=== PATIENT | male | born 1990 | race Caucasian/White ===

== ENCOUNTER 2017-06-28 12:35 | Emergency (ER) | payer SELFPAY ==
[2017-06-28 12:53] VITALS: BP 147/93; PULSE 86; RESP 16; TEMP 98; O2SAT 98
--- NOTE | 2017-06-28 13:21 | ED PDOC ---
HPI: Dental Pain/Injury Time Seen by Provider: 06/28/17 13:00 Chief Complaint (Nursing): Dental Pain Chief Complaint (Provider): Dental Pain History Per: Patient History/Exam Limitations: no limitations Onset/Duration Of Symptoms: Days (x 3) Current Symptoms Are (Timing): Still Present Additional Complaint(s): Carmen is a 26 y/o male who presents to the ED complaining of left-sided facial swelling and dental pain since Wednesday. Patient reports he has not seen a dentist for symptoms. Took Tylenol once on Wednesday with minimal relief. PMD: None Past Medical History Reviewed: Historical Data, Nursing Documentation, Vital Signs Vital Signs: Last Vital Signs Temp 98 F 06/28/17 12:51 Pulse 86 06/28/17 12:51 Resp 16 06/28/17 12:51 BP 147/93 H 06/28/17 12:51 Pulse Ox 98 06/28/17 12:51 - Medical History PMH: No Chronic Diseases - Family History Family History: States: Unknown Family Hx - Home Medications Home Medications: Ambulatory Orders Medication Instructions Recorded Hydrocortisone 2.5% (Rectal) 30 applic ND BID #0 tube 02/17/16 [Anusol-HC] Ibuprofen [Motrin Tab] 800 mg PO Q8 PRN #20 tab 02/17/16 Lidocaine 5% 35 gm EXT TID PRN #1 tube 02/17/16 Amoxicillin 875 mg PO BID #20 tab 06/28/17 Ibuprofen [Motrin Tab] 800 mg PO Q6H PRN #20 tab 06/28/17 - Allergies Allergies/Adverse Reactions: Allergies Allergy/AdvReac Type Severity Reaction Status Date / Time No Known Allergies Allergy Verified 06/28/17 12:51 Review of Systems ROS Statement: Except As Marked, All Systems Reviewed And Found Negative ENT: Positive for: Other (Left facial swelling and dental pain) Physical Exam - Reviewed Nursing Documentation Reviewed: Yes Vital Signs Reviewed: Yes - Physical Exam Appears: Positive for: Well, Non-toxic, No Acute Distress Head Exam: Positive for: ATRAUMATIC, NORMAL INSPECTION, NORMOCEPHALIC Skin: Positive for: Normal Color, Warm, Dry Eye Exam: Positive for: Normal appearance ENT: Positive for: Other (Mild swelling of left cheek, no abscess formation) Respiratory: Negative for: Respiratory Distress Neurologic/Psych: Positive for: Alert, Oriented - ECG O2 Sat by Pulse Oximetry: 98 (RA) Pulse Ox Interpretation: Normal Medical Decision Making Medical Decision Making: Clinical Impression: Pain, dental Upon provider evaluation patient is medically stable, and requires no further treatment in the ED at this time. Instructed to follow up with dentist. Patient will be discharged home with Rx for Amoxicillin and Motrin. Counseling was provided and all questions were answered regarding diagnosis and need for follow up. There is agreement to discharge plan. Return if symptoms persist or worsen. Scribe Attestation: Documented by Shyla Toure, acting as a scribe for Marysol Dozier PA-C Provider Scribe Attestation: All medical record entries made by the Scribe were at my direction and personally dictated by me. I have reviewed the chart and agree that the record accurately reflects my personal performance of the history, physical exam, medical decision making, and the department course for this patient. I have also personally directed, reviewed, and agree with the discharge instructions and disposition. Disposition - Clinical Impression Clinical Impression: Pain, dental - Patient ED Disposition Is Patient to be Admitted: No Counseled Patient/Family Regarding: Diagnosis, Need For Followup, Rx Given - Disposition Disposition: Routine/Home Disposition Time: 13:11 Condition: STABLE Prescriptions: Amoxicillin 875 mg PO BID #20 tab Ibuprofen [Motrin Tab] 800 mg PO Q6H PRN #20 tab PRN Reason: Pain Instructions: Toothache (ED) Forms: [employer] ([place])
== END 2017-06-28 13:31 | disposition home or self-care (01) ==
LOC: H.ER 12:35
DX: K08.89 Other specified disorders of teeth and supporting structures (principal)

== ENCOUNTER 2017-11-18 10:23 | Emergency (ER) | payer SELFPAY ==
[2017-11-18 10:42] VITALS: BP 117/74; PULSE 87; RESP 18; TEMP 97.8; O2SAT 97
[2017-11-18] MEDS ORDERED: Sodium Chloride 0.9% 1,000 ML IV STA (11:34)
--- NOTE | 2017-11-18 11:37 | ED PDOC ---
HPI: Abdomen Time Seen by Provider: 11/18/17 10:57 Chief Complaint (Nursing): Back Pain Chief Complaint (Provider): Abd pain History Per: Patient History/Exam Limitations: no limitations Onset/Duration Of Symptoms: Days (3) Additional Complaint(s): Pt. with R upper side abd pain. 3 days. Nausea, vomit with x2 with blood tinge. No diarrhea, new food, chest pain, dizziness, headaches, weakness, dyspnea. No fever. Had same in the past and was dx with elevated liver enzymes. Past Medical History Reviewed: Nursing Documentation, Vital Signs Vital Signs: Last Vital Signs Temp 97.8 F 11/18/17 10:37 Pulse 87 11/18/17 10:37 Resp 18 11/18/17 10:37 BP 117/74 11/18/17 10:37 Pulse Ox 97 11/18/17 13:23 - Medical History Other PMH: elevated liver enzymes - Surgical History Surgical History: No Surg Hx - Family History Family History: States: Unknown Family Hx - Home Medications Home Medications: Ambulatory Orders Medication Instructions Recorded Ciprofloxacin HCl [Cipro] 500 mg PO BID 7 Days tab 11/18/17 Ibuprofen [Motrin] 600 mg PO TID 7 Days tab 11/18/17 Metronidazole [Flagyl] 500 mg PO TID 7 Days tablet 11/18/17 - Allergies Allergies/Adverse Reactions: Allergies Allergy/AdvReac Type Severity Reaction Status Date / Time No Known Allergies Allergy Verified 06/28/17 12:51 Review of Systems ROS Statement: Except As Marked, All Systems Reviewed And Found Negative Gastrointestinal: Positive for: Nausea, Vomiting, Abdominal Pain, Hematemesis Physical Exam - Reviewed Nursing Documentation Reviewed: Yes Vital Signs Reviewed: Yes - Physical Exam Appears: Positive for: Non-toxic, No Acute Distress Head Exam: Positive for: ATRAUMATIC, NORMAL INSPECTION, NORMOCEPHALIC Skin: Positive for: Normal Color, Warm, DRY Eye Exam: Positive for: EOMI, Normal appearance, PERRL ENT: Positive for: Normal ENT Inspection Neck: Positive for: Normal, Painless ROM Cardiovascular/Chest: Positive for: Regular Rate, Rhythm Respiratory: Positive for: CNT, Normal Breath Sounds Gastrointestinal/Abdominal: Positive for: Bowel Sounds, Soft, Tenderness (R upper lateral abd pain mild; no tenderness lower abd pain; no periumbilical tenderness) Back: Positive for: Normal Inspection. Negative for: L CVA Tenderness, R CVA Tenderness Extremity: Positive for: Normal ROM. Negative for: Tenderness, Pedal Edema Neurologic/Psych: Positive for: Alert, Oriented - Laboratory Results Result Diagrams: 11/18/17 11:45 11/18/17 11:45 Interpretation Of Abn Labs: mild elevated ast/alt; lipase 450 - ECG O2 Sat by Pulse Oximetry: 97 Pulse Ox Interpretation: Normal - CT Scan/US ct Other Rad Studies (CT/US): Read By Radiologist Other Rad Interpretation: diverticulitis - Progress ED Course And Treament: 1843: Stable. AAOx3. Pain free. Fu with pcp. Tolerated PO. Disposition - Clinical Impression Clinical Impression: Colitis - Patient ED Disposition Is Patient to be Admitted: No - Disposition Referrals: [facility] [Outside] - 11/19/17 Luis Jacome MD [Medical Doctor] - 11/19/17 Disposition: Routine/Home Disposition Time: 18:45 Condition: STABLE Additional Instructions: Return if not better in 3 days. Prescriptions: Ciprofloxacin HCl [Cipro] 500 mg PO BID 7 Days tab Ibuprofen [Motrin] 600 mg PO TID 7 Days tab Metronidazole [Flagyl] 500 mg PO TID 7 Days tablet Forms: [employer] ([place]), [facility] ED School/Work Excuse
[2017-11-18 12:03] LABS: BASO % 0.4 % (0.0-2.0); EOS # 0.1 K/uL (0.0-0.7); EOS % 1.4 % (0.0-4.0); HEMOGLOBIN 15.3 g/dL (12.0-18.0); LYMPH # 1.7 K/uL (1.0-4.3); LYMPH % 20.7 % (20.0-40.0); MEAN CELL VOLUME 91.6 fl (80.0-94.0); MEAN CORPUSCULAR HEMOGLOBIN 31.1 pg (27.0-31.0); MEAN CORPUSCULAR HGB CONC 33.9 g/dL (33.0-37.0); MEAN PLATELET VOLUME 8.2 fl (7.2-11.7); MONO # 0.6 K/uL (0.0-0.8); MONO % 7.4 % (0.0-10.0); NEUT # 5.6 K/uL (1.8-7.0); NEUT % 70.1 % (50.0-75.0); NRBC % 0.1 % (0.0-0.0); RBC 4.92 Mil/uL (4.40-5.90); RED CELL DISTRIBUTION WIDTH 12.4 % (11.5-14.5)
[2017-11-18 12:14] LABS: PARTIAL THROMBOPLASTIN TIME 30.3 Seconds (25.6-37.1); PROTHROMBIN TIME 11.3 Seconds (9.8-13.1)
[2017-11-18 12:22] LABS: ALB/GLOB RATIO 1.4 (1.0-2.1); ALBUMIN 4.4 g/dL (3.5-5.0); ALT/SGPT 155 U/L (21-72); AST/SGOT 75 U/L (17-59); BLOOD UREA NITROGEN 12 mg/dl (9-20); CALCIUM 9.7 mg/dL (8.4-10.2); GFR AFRICAN-AMERICAN > 60; GFR NON-AFRICAN AMERICAN > 60; LIPASE 450 U/L (23-300)
--- NOTE | 2017-11-18 12:31 | US ---
HISTORY: pain R side COMPARISON: None. TECHNIQUE: Sonographic evaluation of the abdomen. FINDINGS: LIVER: Measures 15.0 cm. Normal echogenicity of the liver parenchyma. No mass. No intrahepatic bile duct dilatation. GALLBLADDER: Multiple small gallbladder polyps versus tumefactive sludge, the largest measures up to 5 mm. COMMON BILE DUCT: Measures 4 mm. No stones. No dilatation. PANCREAS: Unremarkable as visualized. No mass. No ductal dilatation. RIGHT KIDNEY: Measures 11.5 x 5.3 x 4.8cm. Normal echogenicity. No calculus, mass, or hydronephrosis. LEFT KIDNEY: Measures 12.0 x 5.0 x 5.2cm. Normal echogenicity. No calculus, mass, or hydronephrosis. SPLEEN: Normal in size and contour. No mass. AORTA: No aneurysmal dilatation. IVC: Unremarkable. OTHER FINDINGS: None. IMPRESSION: Small gallbladder polyps versus tumefactive sludge, measuring up to 5 mm.
[2017-11-18] MEDS ORDERED: Iohexol 240 (50 ml) PO ONE (13:23)
[2017-11-18] MEDS ORDERED: Iohexol 240 (50 ml) ONE (15:28)
[2017-11-18] MEDS ORDERED: Iohexol 300 100 ML IJ ONE (15:35)
[2017-11-18] MEDS ORDERED: Sodium Chloride 0.9% 100 ML ONE (15:35)
--- NOTE | 2017-11-18 18:12 | CT ---
PROCEDURE: CT Abdomen and Pelvis with oral and IV contrast. HISTORY: abd pain COMPARISON: Abdominal ultrasound performed 11/18/17. TECHNIQUE: Contiguous axial images of the abdomen and pelvis. Oral and IV contrast was administered. Coronal and Sagittal reformats generated and reviewed. Contrast dose: 90 mL Omnipaque 300 Radiation dose: Total exam DLP = 380.36 mGy-cm. This CT exam was performed using one or more of the following dose reduction techniques: Automated exposure control, adjustment of the mA and/or kV according to patient size, and/or use of iterative reconstruction technique. FINDINGS: LOWER THORAX: No visible consolidation, pleural effusion, or pneumothorax. LIVER: Unremarkable. GALLBLADDER AND BILE DUCTS: Unremarkable. PANCREAS: Unremarkable. SPLEEN: Unremarkable. ADRENALS: Unremarkable. KIDNEYS AND URETERS: The kidneys enhance symmetrically. No hydronephrosis or obstructing renal calculus. BLADDER: Thick-walled under distended urinary bladder. REPRODUCTIVE: Prominence of the seminal glands of uncertain significance. Correlate clinically. APPENDIX: The appendix appears within normal limits of caliber. No secondary signs of acute appendicitis. BOWEL: The stomach is nondistended. The bowel loops appear within normal limits of caliber without evidence of intestinal obstruction. Diverticulosis of the rectosigmoid colon with mild wall thickening ; correlate clinically for possibility of acute diverticulitis. PERITONEUM: No significant free fluid. No definite free air. LYMPH NODES: No bulky lymphadenopathy identified. VASCULATURE: No aortic aneurysm. BONES: No acute osseous abnormality is detected. OTHER FINDINGS: None. IMPRESSION: Diverticulosis of the rectosigmoid colon with mild wall thickening ; correlate clinically for possibility of acute diverticulitis. Thick-walled under distended urinary bladder. Recommend correlation with urinalysis. Prominence of the seminal glands of uncertain significance. Correlate clinically. Additional findings as above.
== END 2017-11-18 19:10 | disposition home or self-care (01) ==
LOC: H.ER 10:23 → SUPCPDRO 10:23 → H.ER 19:10
DX: K52.9 Noninfective gastroenteritis and colitis, unspecified (principal); R74.8 Abnormal levels of other serum enzymes
CPT/HCPCS: 74177; 76700; 80053; 83690; 85025; 85610; 85730; 96374; 96375; 96376; 99284; G0480; J1885; J2405; J7040; Q9966; Q9967

== ENCOUNTER 2017-11-20 23:44 | Observation (INO) | payer SELFPAY ==
[2017-11-21] MEDS ORDERED: Sodium Chloride 0.9% 1,000 ML IV STA ×2 (00:29→01:50)
--- NOTE | 2017-11-21 00:35 | ED PDOC ---
HPI: Abdomen Chief Complaint (Provider): Abdominal pain History Per: Patient History/Exam Limitations: no limitations Onset/Duration Of Symptoms: Days (3) Current Symptoms Are (Timing): Still Present Pain Scale Rating Of: 8 Location Of Pain/Discomfort: RUQ, Epigastric Quality Of Discomfort: Cramping Associated Symptoms: Nausea, Vomiting, Diarrhea Exacerbating Factors: None Alleviating Factors: None Last Bowel Movement: Today (diarrhea 1 hour ago) <Jonathan Steele - Last Filed: 11/21/17 06:31> <Peng Conrad - Last Filed: 11/21/17 07:31> Time Seen by Provider: 11/21/17 00:08 Chief Complaint (Nursing): Abdominal Pain Additional Complaint(s): 27 yo ,m, no significant PMhx presents to ED c/o epigastric and RUQ abd pain started 3 days ago, cramping, intermittent, 8/10 intensity, not radiated, associated with nausea, 7 non-bloddy vomiting, 8 non-bloddy diarrhea today and fatigue. He denies fever, dizziness, chest apin, SOB, dysuria, odd food ingestion. Patient evalauted in ED 11/18 for abd pain and vomiting. Patient discharged home with treatment ciprofloxacin and metronidazol for colitis. Patient did not pick med from pharmacy. On evaluation patient uncomfortable in pain and with mild dehydration. PMD: Dr Nelson (Jonathan Steele) Supervising Attending Note <Jonathan Steele - Last Filed: 11/21/17 06:31> - Attestation: I have personally seen and examined this patient.: Yes I have fully participated in the care of the patient.: Yes I have reviewed all pertinent clinical information: Yes <Peng Conrad - Last Filed: 11/21/17 07:31> - Notes: Notes:: Patient profoundly dehydrated, having intractable nausea and vomiting, will not be able to tolerate PO ABx, also significant leukocytosis. Will place in obs for IVF and IV ABx. (Peng Conrad) Past Medical History Reviewed: Historical Data, Nursing Documentation, Vital Signs - Surgical History Surgical History: No Surg Hx - Family History Family History: States: Hypertension Other Family History: -Parents - Social History Alcohol: None Drugs: Denies <Jonathan Steele - Last Filed: 11/21/17 06:31> <Houston,Peng - Last Filed: 11/21/17 07:31> Vital Signs: Last Vital Signs Temp 98 F 11/20/17 23:51 Pulse 115 H 11/20/17 23:51 Resp 18 11/20/17 23:51 BP 128/80 11/20/17 23:51 Pulse Ox 100 11/21/17 06:31 - Home Medications Home Medications: Ambulatory Orders Medication Instructions Recorded Ciprofloxacin HCl [Cipro] 500 mg PO BID 7 Days tab 11/18/17 Ibuprofen [Motrin] 600 mg PO TID 7 Days tab 11/18/17 Metronidazole [Flagyl] 500 mg PO TID 7 Days tablet 11/18/17 - Allergies Allergies/Adverse Reactions: Allergies Allergy/AdvReac Type Severity Reaction Status Date / Time No Known Allergies Allergy Verified 06/28/17 12:51 Review of Systems ROS Statement: Except As Marked, All Systems Reviewed And Found Negative Gastrointestinal: Positive for: Nausea, Vomiting, Abdominal Pain, Diarrhea <Jonathan Steele - Last Filed: 11/21/17 06:31> Physical Exam - Physical Exam Appears: Positive for: No Acute Distress Head Exam: Positive for: ATRAUMATIC Skin: Positive for: Normal Color Eye Exam: Positive for: Normal appearance Neck: Positive for: Normal Cardiovascular/Chest: Positive for: Regular Rate, Rhythm, Tachycardia. Negative for: Murmur Respiratory: Positive for: Normal Breath Sounds. Negative for: Crackles, Rales , Rhonchi, Wheezing Gastrointestinal/Abdominal: Positive for: Bowel Sounds (hypoactive), Soft, Tenderness (epigastrium and RUQ). Negative for: Distended, Guarding, Rebound Back: Positive for: Normal Inspection Extremity: Positive for: Normal ROM. Negative for: Tenderness, Pedal Edema Neurologic/Psych: Positive for: Alert, Oriented. Negative for: Motor/Sensory Deficits <Jonathan Steele - Last Filed: 11/21/17 06:31> - Laboratory Results Result Diagrams: 11/21/17 01:09 11/21/17 01:09 - ECG O2 Sat by Pulse Oximetry: 100 <Jonathan Steele - Last Filed: 11/21/17 06:31> - Laboratory Results Result Diagrams: 11/21/17 01:09 11/21/17 01:09 <Peng Conrad - Last Filed: 11/21/17 07:31> Medical Decision Making <Jonathan Steele - Last Filed: 11/21/17 06:31> <Peng Conrad - Last Filed: 11/21/17 07:31> Medical Decision Makin:29 Impression Gastroenteritis. Colitis Differential Acute cholecystitis. Acute Pancreatitis Plan CBC, CMP ,Lipase IV FLuids 1 L NS, Zofran 4 mg, Pepcid 20 mg IV -reevaluate Prior visit 11/18/16 CT Abd: Diverticulosis of the rectosigmoid colon with mild wall thickening ; correlate clinically for possibility of acute diverticulitis. Thick-walled under distended urinary bladder. Recommend correlation with urinalysis. Prominence of the seminal glands of uncertain significance. Correlate clinically. US ABd: Small gallbladder polyps versus tumefactive sludge, measuring up to 5 mm. US Abd 11/21/17 1. The gallbladder wall measures 3 mm. There are multiple non-mobile gallbladder polyps measuring 5 mm, 6 mm and 4 mm unchanged from prior examination.There was no right upper quadrant tenderness during the sonographic examination. Correlation with patient 's pain medication status is recommended. Labs reviewed CBC: leukocytosis with lef shift deviation WBC: 25.1 total bili: 1.4 ALT:87. Lactic acid normal . -will give IV Abx Ciprofloxacin, Flagyl IV -further labs Blood cx, Urine cx -CT Abd/pelvis PO/IV CT Abd: Nonspecific colonic and distal small bowel wall thickening likely due to underdistention versus nonspecific enterocolitis. Patient will be admitted for Colitis and leukocytosis to c/w IV Abx (Jonathan Steele) Disposition - Disposition Disposition Time: 06:30 <Jonathan Steele - Last Filed: 11/21/17 06:31> <Peng Conrad - Last Filed: 11/21/17 07:31> - Clinical Impression Clinical Impression: Colitis - Disposition Condition: FAIR
[2017-11-21 01:19] LABS: BASO # 0.3 K/uL (0.0-0.2); BASO % 1.1 % (0.0-2.0); HEMOGLOBIN 14.3 g/dL (12.0-18.0); LYMPH # 0.3 K/uL (1.0-4.3); LYMPH % 1.1 % (20.0-40.0); MEAN CELL VOLUME 90.3 fl (80.0-94.0); MEAN CORPUSCULAR HEMOGLOBIN 30.8 pg (27.0-31.0); MEAN CORPUSCULAR HGB CONC 34.1 g/dL (33.0-37.0); MEAN PLATELET VOLUME 7.8 fl (7.2-11.7); MONO % 4.1 % (0.0-10.0); NEUT # 23.5 K/uL (1.8-7.0); NEUT % 93.7 % (50.0-75.0); NRBC % 0.5 % (0.0-0.0); PLATELET COUNT 245 K/uL (130-400); RBC 4.66 Mil/uL (4.40-5.90); RED CELL DISTRIBUTION WIDTH 12.4 % (11.5-14.5)
[2017-11-21 01:25] LABS: ALB/GLOB RATIO 1.4 (1.0-2.1); ALBUMIN 4.4 g/dL (3.5-5.0); ALT/SGPT 97 U/L (21-72); AST/SGOT 41 U/L (17-59); BLOOD UREA NITROGEN 12 mg/dl (9-20); CALCIUM 9.7 mg/dL (8.4-10.2); GFR AFRICAN-AMERICAN > 60; GFR NON-AFRICAN AMERICAN > 60; LIPASE 60 U/L (23-300)
[2017-11-21 01:27] LABS: WHITE BLOOD COUNT 25.1 K/uL (4.8-10.8)
[2017-11-21] MEDS ORDERED: metroNIDAZOLE 500mg/100ml NS 100 ML IVPB STA (01:49)
[2017-11-21] MEDS ORDERED: Ciprofloxacin 400mg/200ml D5W 400 MG/200 ML BAG IVPB STA (01:49)
--- NOTE | 2017-11-21 01:52 | US ---
EXAM: US Abdomen Limited, Right Upper Quadrant CLINICAL HISTORY: 27 years old, male; Pain; Other: Ruq; Additional info: Repeat us for worsening ruq pain TECHNIQUE: Real-time ultrasound of the right upper quadrant with image documentation. COMPARISON: US - ABDOMEN COMPLETE 2017-11-18 11:46 FINDINGS: Artifacts: Limited due to bowel gas shadowing. Limited due to shadowing from the ribs. Liver: The liver measures 16.1 cm. There is hepatic pedal flow in the portal vein. Gallbladder: The gallbladder wall measures 3 mm. There are multiple non-mobile gallbladder polyps measuring 5 mm, 6 mm and 4 mm unchanged from prior examination.There was no right upper quadrant tenderness during the sonographic examination. Correlation with patient's pain medication status is recommended. Common bile duct: Normal common bile duct measuring 4 mm. Pancreas: The pancreas is not well-seen. Right kidney: The right kidney measures 12.4 x 5.1 x 4.4 cm. No stones. No hydronephrosis. Aorta: Aorta measures 1.5 cm. No aneurysm. Inferior vena cava: IVC seen. IMPRESSION: 1. The gallbladder wall measures 3 mm. There are multiple non-mobile gallbladder polyps measuring 5 mm, 6 mm and 4 mm unchanged from prior examination.There was no right upper quadrant tenderness during the sonographic examination. Correlation with patient's pain medication status is recommended.
[2017-11-21] MEDS ORDERED: Iohexol 240 (50 ml) PO ONE (01:54)
[2017-11-21 03:13] LABS: LYMPHOCYTE 4 % (20-50); MONOCYTE 4 % (0-10); NEUTROPHIL 92 % (42-75); TOTAL CELLS COUNTED 100
[2017-11-21 03:14] LABS: PLATELET ESTIMATE NORMAL (NORMAL)
[2017-11-21] MEDS ORDERED: Iohexol 300 100 ML IJ ONE (04:20)
[2017-11-21] MEDS ORDERED: Sodium Chloride 0.9% 100 ML ONE (04:20)
[2017-11-21 05:52] LABS: SQUAMOUS EPITHIAL < 1 /hpf (0-5); URINE BILIRUBIN NEGATIVE (NEGATIVE); URINE BLOOD NEGATIVE (NEGATIVE); URINE CLARITY SLIGHTY-CLOUDY (Clear); URINE COLOR YELLOW (YELLOW); URINE GLUCOSE (UA) NEG (Normal); URINE LEUKOCYTE ESTERASE NEG Leu/uL (Negative); URINE PROTEIN 30 mg/dL (NEGATIVE); URINE UROBILINOGEN 0.2-1.0 mg/dL (0.2-1.0)
--- NOTE | 2017-11-21 05:57 | CT ---
EXAM: CT Abdomen and Pelvis With Intravenous Contrast CLINICAL HISTORY: 27 years old, male; Pain; Abdominal pain; Acute; Additional info: Worsening abd pain, leukocytosis TECHNIQUE: Axial computed tomography images of the abdomen and pelvis with intravenous contrast. All CT scans at this facility use one or more dose reduction techniques, viz.: automated exposure control; ma/kV adjustment per patient size (including targeted exams where dose is matched to indication; i.e. head); or iterative reconstruction technique. 575 images are submitted. Oral contrast was administered. Coronal and sagittal reformatted images were created and reviewed. CONTRAST: 95 mL of omnipaque 300 administered intravenously. COMPARISON: CT - ABD PELVIS PO IV CONTRAST 2017-11-18 17:42 FINDINGS: Lower thorax: No acute findings. ABDOMEN: Liver: Fatty liver. Gallbladder and bile ducts: Unremarkable. No ductal dilation. Pancreas: Unremarkable. No mass. No ductal dilation. Spleen: Unremarkable. No splenomegaly. Adrenals: Unremarkable. No mass. Kidneys and ureters: Tiny right renal hypodensity too small to characterize. No hydronephrosis. Stomach and bowel: Nonspecific colonic thickening likely due to underdistention versus nonspecific colitis. Diverticulosis. Nonspecific distal small bowel wall thickening could be due to underdistention versus enteritis. Appendix: Normal appendix with intraluminal contrast. PELVIS: Bladder: Bladder distention 10.8 cm. Correlation with patient's voiding status is recommended. Reproductive: Borderline prominence of the prostate gland. ABDOMEN and PELVIS: Intraperitoneal space: Unremarkable. No free air. No significant fluid collection. Bones/joints: No acute fracture. No dislocation. Soft tissues: Unremarkable. Vasculature: Unremarkable. No abdominal aortic aneurysm. Lymph nodes: Unremarkable. No enlarged lymph nodes. IMPRESSION: 1. Nonspecific colonic and distal small bowel wall thickening thickening likely due to underdistention versus nonspecific enterocolitis.
[2017-11-21] MEDS: Lactated Ringer's 1,000 ML IV SCH ×2 (07:35→17:26)
--- NOTE | 2017-11-21 09:13 | CP.PCM.HP ---
History of Present Illness - History of Present Illness History of Present Illness: Chief Complaint : diarrhea HPI: 27 y/o gent , no significant PMH, came in because of diarrhea x 4 days. The patient started having nausea/ vomiting and diarrhea on . This was accompanied by diffuse abdominal pain mostly on the epigastric and periumbical areas. Patient states that he vomited everything he ate . His BM was sot and occuring 7-8 times that day so he came to the ED. CT scan of the abdomen showed Colitis and he was discharged home on PO Cipro and Flagyl. 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 His diarrhea and N/V persisted and i now accompanied by fever and chills. Due to the persistence of his symptoms, the patient came back to the ED. Denies any recent travel , no sick contacts at home. States he eats all his meals at home , brings food from home for his lunch . Present on Admission - Present on Admission Any Indicators Present on Admission: No Review of Systems - Review of Systems All systems: reviewed and no additional remarkable complaints except - Constitutional Constitutional: Chills, Fatigue, Fever, Lethargy, Weakness - EENT Eyes: absent: Blurred Vision, Change in Vision Ears: absent: Decreased Hearing, Ear Discharge Nose/Mouth/Throat: absent: Nasal Congestion, Nasal Discharge - Cardiovascular Cardiovascular: absent: Chest Pain, Chest Pain at Rest, Dyspnea on Exertion - Respiratory Respiratory: absent: Cough, Dyspnea, Dyspnea on Exertion - Gastrointestinal Gastrointestinal: Abdominal Pain, Diarrhea, Loose Stools, Nausea, Vomiting. absent: Hematemesis, Hematochezia - Genitourinary Genitourinary: absent: Change in Urinary Stream, Difficulty Urinating - Musculoskeletal Musculoskeletal: Muscle Weakness. absent: Abnormal Gait, Back Pain - Integumentary Integumentary: absent: Lesions, Pruritus, Rash - Neurological Neurological: Weakness. absent: Dizziness, Focal Weakness - Psychiatric Psychiatric: absent: Anxiety, Depression - Endocrine Endocrine: absent: Polydipsia, Polyphagia, Polyuria - Hematologic/Lymphatic Hematologic: absent: Easy Bleeding, Easy Bruising Past Patient History - Infectious Disease Hx of Infectious Diseases: None - Tetanus Immunizations Tetanus Immunization: Unknown - Past Medical History & Family History Past Medical History?: No Past Family History: Reviewed and not pertinent Pertinent Family History: Father and Mother : HTN - Past Social History Smoking Status: Never Smoked Chewing Tobacco Use: No Cigar Use: No Occupation: Office work doing Logistics Alcohol: None Drugs: Denies Home Situation {Lives}: With Family Domestic Violence: Negative - CARDIAC Hx Cardiac Disorders: No - PULMONARY Hx Respiratory Disorders: No - NEUROLOGICAL Hx Neurological Disorder: No - HEENT Hx HEENT Problems: No - RENAL Hx Chronic Kidney Disease: No - ENDOCRINE/METABOLIC Hx Endocrine Disorders: No - HEMATOLOGICAL/ONCOLOGICAL Hx Blood Disorders: No - INTEGUMENTARY Hx Dermatological Problems: No - MUSCULOSKELETAL/RHEUMATOLOGICAL Hx Musculoskeletal Disorders: No - GASTROINTESTINAL Other/Comment: 3 years ago , had RUQ pain, went to Hosp in [place]- was told he had abn LFTs and GB inflammation ? - GENITOURINARY/GYNECOLOGICAL Hx Genitourinary Disorders: No - PSYCHIATRIC Hx Psychophysiologic Disorder: No Hx Substance Use: No - SURGICAL HISTORY Hx Surgeries: No - ANESTHESIA Hx Anesthesia: No Meds Allergies/Adverse Reactions: Allergies Allergy/AdvReac Type Severity Reaction Status Date / Time No Known Allergies Allergy Verified 06/28/17 12:51 Physical Exam - Constitutional Appears: Non-toxic, No Acute Distress - Head Exam Head Exam: ATRAUMATIC, NORMAL INSPECTION, NORMOCEPHALIC - Eye Exam Eye Exam: EOMI, Normal appearance, PERRL Pupil Exam: NORMAL ACCOMODATION - ENT Exam ENT Exam: Mucous Membranes Dry, Normal External Ear Exam - Neck Exam Neck exam: Positive for: Full Rom. Negative for: Meningismus - Respiratory Exam Respiratory Exam: NORMAL BREATHING PATTERN. absent: Respiratory Distress - Cardiovascular Exam Cardiovascular Exam: Tachycardia, REGULAR RHYTHM, +S1, +S2 - GI/Abdominal Exam GI & Abdominal Exam: Normal Bowel Sounds, Soft, Tenderness (mild diffuse tenderness) - Extremities Exam Extremities exam: Positive for: full ROM, normal capillary refill, pedal pulses present. Negative for: calf tenderness, pedal edema - Back Exam Back exam: FULL ROM, NORMAL INSPECTION. absent: CVA tenderness (L), CVA tenderness (R) - Neurological Exam Neurological exam: Alert, CN II-XII Intact, Oriented x3, Reflexes Normal - Psychiatric Exam Psychiatric exam: Normal Affect, Normal Mood - Skin Skin Exam: Dry, Intact, Normal Color, Warm Results - Vital Signs Recent Vital Signs: Last Vital Signs Temp 99.0 F 11/21/17 08:00 Pulse 86 11/21/17 08:00 Resp 14 11/21/17 08:00 BP 118/67 11/21/17 08:00 Pulse Ox 98 11/21/17 08:00 - Labs Result Diagrams: 11/21/17 01:09 11/21/17 01:09 Labs: Laboratory Results - last 24 hr 11/21/17 11/21/17 11/21/17 01:09 01:09 01:09 WBC 25.1 H D RBC 4.66 Hgb 14.3 Hct 42.0 MCV 90.3 MCH 30.8 MCHC 34.1 RDW 12.4 Plt Count 245 MPV 7.8 Neut % (Auto) 93.7 H Lymph % (Auto) 1.1 L Person % (Auto) 4.1 Eos % (Auto) 0.0 Baso % (Auto) 1.1 Neut # (Auto) 23.5 H Lymph # (Auto) 0.3 L Person # (Auto) 1.0 H Eos # (Auto) 0.0 Baso # (Auto) 0.3 H Neutrophils % (Manual) 92 H Lymphocytes % (Manual) 4 L Monocytes % (Manual) 4 Platelet Estimate Normal Sodium 141 Potassium 4.0 Chloride 101 Carbon Dioxide 26 Anion Gap 18 BUN 12 Creatinine 0.8 Est GFR ( Amer) > 60 Est GFR (Non-Af Amer) > 60 Random Glucose 153 H Lactic Acid 1.7 Calcium 9.7 Total Bilirubin 1.4 H AST 41 ALT 97 H D Alkaline Phosphatase 78 Total Protein 7.5 Albumin 4.4 Globulin 3.2 Albumin/Globulin Ratio 1.4 Lipase 60 Urine Color Urine Clarity Urine pH Ur Specific [place] Urine Protein Urine Glucose (UA) Urine Ketones Urine Blood Urine Nitrate Urine Bilirubin Urine Urobilinogen Ur Leukocyte Esterase Urine RBC (Auto) Urine Microscopic WBC Ur Squamous Epith Cells 11/21/17 05:23 WBC RBC Hgb Hct MCV MCH MCHC RDW Plt Count MPV Neut % (Auto) Lymph % (Auto) Person % (Auto) Eos % (Auto) Baso % (Auto) Neut # (Auto) Lymph # (Auto) Person # (Auto) Eos # (Auto) Baso # (Auto) Neutrophils % (Manual) Lymphocytes % (Manual) Monocytes % (Manual) Platelet Estimate Sodium Potassium Chloride Carbon Dioxide Anion Gap BUN Creatinine Est GFR ( Amer) Est GFR (Non-Af Amer) Random Glucose Lactic Acid Calcium Total Bilirubin AST ALT Alkaline Phosphatase Total Protein Albumin Globulin Albumin/Globulin Ratio Lipase Urine Color Yellow Urine Clarity Slighty-cloudy Urine pH 8.0 Ur Specific [place] 1.017 Urine Protein 30 Urine Glucose (UA) Neg Urine Ketones 20 Urine Blood Negative Urine Nitrate Negative Urine Bilirubin Negative Urine Urobilinogen 0.2-1.0 Ur Leukocyte Esterase Neg Urine RBC (Auto) 4 H Urine Microscopic WBC 2 Ur Squamous Epith Cells < 1 - Imaging and Cardiology CT scan - abdomen Status: Image reviewed by me, Report reviewed by me Additional comment: Nonspecific colonic and distal small bowel wall thickening thickening likely due to underdistention versus nonspecific enterocolitis. Assessment & Plan (1) Acute gastroenteritis Status: Acute - Assessment and Plan (Free Text) Assessment: Acute Gastroenteritis/Colitis - Ct scan showed Colitis changes, WBC 25k, pt with chills and fever - IVF hydration - start IV Cipro and Flagyl - Stool Culture, Ova/Parasite -NPO for now -Zofran for vomiting -Pain mgt DVT Proph - SCD, early ambulation Decision To Admit - Pt Status Changed To: Hospital Disposition Of: Observation - . Bed Request Type: Med/Surg Admitting Physician: Ana Zepeda
[2017-11-21] MEDS: metroNIDAZOLE 500mg/100ml NS 100 ML IVPB SCH ×2 (12:54→21:50)
[2017-11-21] MEDS: Ciprofloxacin 400mg/200ml D5W 400 MG/200 ML BAG IVPB SCH (20:50)
[2017-11-22] MEDS: metroNIDAZOLE 500mg/100ml NS 100 ML IVPB SCH ×3 (04:37→20:05)
[2017-11-22 06:33] LABS: HEMOGLOBIN 14.2 g/dL (12.0-18.0); MEAN CELL VOLUME 90.8 fl (80.0-94.0); MEAN CORPUSCULAR HGB CONC 34.1 g/dL (33.0-37.0); RBC 4.57 Mil/uL (4.40-5.90); RED CELL DISTRIBUTION WIDTH 12.8 % (11.5-14.5); WHITE BLOOD COUNT 10.3 K/uL (4.8-10.8)
[2017-11-22 07:16] LABS: BLOOD UREA NITROGEN 6 mg/dl (9-20); CALCIUM 8.8 mg/dL (8.4-10.2); GFR AFRICAN-AMERICAN > 60; GFR NON-AFRICAN AMERICAN > 60
[2017-11-22] MEDS: Ciprofloxacin 400mg/200ml D5W 400 MG/200 ML BAG IVPB SCH ×2 (09:01→20:06)
--- NOTE | 2017-11-22 11:22 | CP.PCM.PN ---
Subjective - Date & Time of Evaluation Date of Evaluation: 11/22/17 Time of Evaluation: 11:00 - Subjective Subjective: no fever still with diarrhea x 4 last night, no blood in stool sl nausea but no vomiting today still with abd pain when he has BM only no cough no CP no dysuria Objective - Vital Signs/Intake and Output Vital Signs (last 24 hours): Temp Pulse Resp BP Pulse Ox 99.4 F 87 20 144/76 99 11/22/17 09:00 11/22/17 09:00 11/22/17 09:00 11/22/17 09:00 11/22/17 09:00 Intake and Output: 11/22/17 11/22/17 06:59 18:59 Intake Total 1560 Balance 1560 - Medications Medications: Current Medications Acetaminophen (Tylenol 325mg Tab) 650 mg PO Q6 PRN PRN Reason: Headache Last Admin: 11/22/17 08:04 Dose: 650 mg Ciprofloxacin (Cipro 400mg/200ml Dsw) 400 mg in 200 mls @ 200 mls/hr IVPB Q12 ISIDRO PRN Reason: Protocol Last Admin: 11/22/17 09:01 Dose: 200 mls/hr Metronidazole (Flagyl 500mg/100ml Ns) 100 mls @ 100 mls/hr IVPB Q8H ISIDRO PRN Reason: Protocol Last Admin: 11/22/17 04:37 Dose: 100 mls/hr Ondansetron HCl (Zofran Inj) 4 mg IVP Q6 PRN PRN Reason: Nausea/Vomiting Last Admin: 11/22/17 03:46 Dose: 4 mg Tramadol HCl (Ultram) 50 mg PO Q4 PRN PRN Reason: Pain, moderate (4-7) - Labs Labs: 11/22/17 05:40 11/22/17 05:40 - Constitutional Appears: Non-toxic, No Acute Distress - Head Exam Head Exam: ATRAUMATIC, NORMAL INSPECTION, NORMOCEPHALIC - Eye Exam Eye Exam: EOMI, Normal appearance, PERRL Pupil Exam: NORMAL ACCOMMODATION - ENT Exam ENT Exam: Mucous Membranes Dry, Normal External Ear Exam - Neck Exam Neck exam: Positive for: Full Rom. Negative for: Meningismus - Respiratory Exam Respiratory Exam: NORMAL BREATHING PATTERN. absent: Respiratory Distress - Cardiovascular Exam Cardiovascular Exam: Tachycardia, REGULAR RHYTHM, +S1, +S2 - GI/Abdominal Exam GI & Abdominal Exam: Normal Bowel Sounds, Soft, Tenderness (mild diffuse tenderness) - Extremities Exam Extremities exam: Positive for: full ROM, normal capillary refill, pedal pulses present. Negative for: calf tenderness, pedal edema - Back Exam Back exam: FULL ROM, NORMAL INSPECTION. absent: CVA tenderness (L), CVA tenderness (R) - Neurological Exam Neurological exam: Alert, CN II-XII Intact, Oriented x3, Reflexes Normal - Psychiatric Exam Psychiatric exam: Normal Affect, Normal Mood - Skin Skin Exam: Dry, Intact, Normal Color, Warm Assessment and Plan (1) Acute gastroenteritis Status: Acute - Assessment and Plan (Free Text) Assessment: 27 y/o gent , no significant PMH came in because of 4 days hx of nausea, vomiting , diarrhea and abdominal pain. Ct of the Abdomen: 1. Nonspecific colonic and distal small bowel wall thickening thickening likely due to underdistention versus nonspecific enterocolitis. Acute Gastroenteritis/Colitis - Ct scan showed Colitis changes, WBC 25k, pt with chills and fever - leukocytosis now resolved - vomiting resolved , diarrhea better but still had 4 x last night - IVF hydration -cont IV Cipro and Flagyl - Stool Culture, Ova/Parasite - start Liquid diet -Zofran for vomiting -Pain mgt DVT Proph - SCD, early ambulation
[2017-11-22 15:58] VITALS: RESP 18
[2017-11-23] MEDS: metroNIDAZOLE 500mg/100ml NS 100 ML IVPB SCH (04:04)
[2017-11-23] MEDS: Lactated Ringer's 1,000 ML IV SCH ×2 (05:48→08:36)
[2017-11-23 06:27] LABS: BASO % 0.5 % (0.0-2.0); EOS # 0.1 K/uL (0.0-0.7); EOS % 1.1 % (0.0-4.0); HEMOGLOBIN 14.2 g/dL (12.0-18.0); LYMPH # 1.5 K/uL (1.0-4.3); MEAN CELL VOLUME 90.6 fl (80.0-94.0); MEAN CORPUSCULAR HGB CONC 34.2 g/dL (33.0-37.0); MEAN PLATELET VOLUME 7.5 fl (7.2-11.7); MONO # 1.3 K/uL (0.0-0.8); MONO % 15.1 % (0.0-10.0); NEUT # 5.6 K/uL (1.8-7.0); NEUT % 65.3 % (50.0-75.0); NRBC % 0.1 % (0.0-0.0); RBC 4.59 Mil/uL (4.40-5.90); RED CELL DISTRIBUTION WIDTH 12.9 % (11.5-14.5); WHITE BLOOD COUNT 8.5 K/uL (4.8-10.8)
[2017-11-23 06:39] LABS: ALB/GLOB RATIO 1.3 (1.0-2.1); ALBUMIN 3.8 g/dL (3.5-5.0); ALT/SGPT 72 U/L (21-72); AST/SGOT 31 U/L (17-59); BLOOD UREA NITROGEN 5 mg/dl (9-20); CALCIUM 9.1 mg/dL (8.4-10.2); GFR AFRICAN-AMERICAN > 60; GFR NON-AFRICAN AMERICAN > 60
[2017-11-23 07:47] VITALS: BP 141/80; PULSE 78; TEMP 98.5; O2SAT 98
[2017-11-23] MEDS: Ciprofloxacin 400mg/200ml D5W 400 MG/200 ML BAG IVPB SCH (08:35)
--- NOTE | 2017-11-23 12:18 | CP.PCM.DIS ---
Provider - Provider Date of Admission: 11/21/17 06:24 Attending physician: Josie Ochoa MD Time Spent in preparation of Discharge (in minutes): 25 Diagnosis - Discharge Diagnosis (1) Enterocolitis Status: Acute Comment: leukocytosis dropped back to normal range. no diarrhea, no abdominal pain, no nausea vomiting. continue PO Cipro and Flagyl for a week. follow up with PCP when antibiotics are all consumed Hospital Course - Lab Results Lab Results: Micro Results 11/22/17 09:36 Stool Ova and Parasite Concentrate Exam - Final 11/21/17 03:30 Blood-Venous Blood Culture - Preliminary NO GROWTH AFTER 48 HOURS 11/21/17 03:00 Blood-Venous Blood Culture - Preliminary NO GROWTH AFTER 48 HOURS 11/21/17 05:45 Urine,Clean Catch Urine Culture - Final No Growth (<1,000 CFU/ML) Most Recent Lab Values WBC 8.5 K/uL (4.8-10.8) 11/23/17 05:50 RBC 4.59 Mil/uL (4.40-5.90) 11/23/17 05:50 Hgb 14.2 g/dL (12.0-18.0) 11/23/17 05:50 Hct 41.6 % (35.0-51.0) 11/23/17 05:50 MCV 90.6 fl (80.0-94.0) 11/23/17 05:50 MCH 31.0 pg (27.0-31.0) 11/23/17 05:50 MCHC 34.2 g/dL (33.0-37.0) 11/23/17 05:50 RDW 12.9 % (11.5-14.5) 11/23/17 05:50 Plt Count 207 K/uL (130-400) 11/23/17 05:50 MPV 7.5 fl (7.2-11.7) 11/23/17 05:50 Neut % (Auto) 65.3 % (50.0-75.0) 11/23/17 05:50 Lymph % (Auto) 18.0 % (20.0-40.0) L 11/23/17 05:50 [place] % (Auto) 15.1 % (0.0-10.0) H 11/23/17 05:50 Eos % (Auto) 1.1 % (0.0-4.0) 11/23/17 05:50 Baso % (Auto) 0.5 % (0.0-2.0) 11/23/17 05:50 Neut # (Auto) 5.6 K/uL (1.8-7.0) 11/23/17 05:50 Lymph # (Auto) 1.5 K/uL (1.0-4.3) 11/23/17 05:50 [place] # (Auto) 1.3 K/uL (0.0-0.8) H 11/23/17 05:50 Eos # (Auto) 0.1 K/uL (0.0-0.7) 11/23/17 05:50 Baso # (Auto) 0.0 K/uL (0.0-0.2) 11/23/17 05:50 Neutrophils % (Manual) 92 % (42-75) H 11/21/17 01:09 Lymphocytes % (Manual) 4 % (20-50) L 11/21/17 01:09 Monocytes % (Manual) 4 % (0-10) 11/21/17 01:09 Platelet Estimate Normal (NORMAL) 11/21/17 01:09 Sodium 140 mmol/l (132-148) 11/23/17 05:50 Potassium 4.0 MMOL/L (3.6-5.0) 11/23/17 05:50 Chloride 96 mmol/L (98-107) L 11/23/17 05:50 Carbon Dioxide 30 mmol/L (22-30) 11/23/17 05:50 Anion Gap 18 (10-20) 11/23/17 05:50 BUN 5 mg/dl (9-20) L 11/23/17 05:50 Creatinine 0.9 mg/dl (0.8-1.5) 11/23/17 05:50 Est GFR ( Amer) > 60 11/23/17 05:50 Est GFR (Non-Af Amer) > 60 11/23/17 05:50 Random Glucose 103 mg/dL (75-110) 11/23/17 05:50 Lactic Acid 1.7 MMOL/L (0.7-2.1) 11/21/17 01:09 Calcium 9.1 mg/dL (8.4-10.2) 11/23/17 05:50 Total Bilirubin 0.4 mg/dl (0.2-1.3) 11/23/17 05:50 AST 31 U/L (17-59) 11/23/17 05:50 ALT 72 U/L (21-72) D 11/23/17 05:50 Alkaline Phosphatase 52 U/L (38-126) 11/23/17 05:50 Total Protein 6.8 G/DL (6.3-8.2) 11/23/17 05:50 Albumin 3.8 g/dL (3.5-5.0) 11/23/17 05:50 Globulin 3.0 gm/dL (2.2-3.9) 11/23/17 05:50 Albumin/Globulin Ratio 1.3 (1.0-2.1) 11/23/17 05:50 Lipase 60 U/L (23-300) 11/21/17 01:09 Urine Color Yellow (YELLOW) 11/21/17 05:23 Urine Clarity Slighty-cloudy (Clear) 11/21/17 05:23 Urine pH 8.0 (5.0-8.0) 11/21/17 05:23 Ur Specific [place] 1.017 (1.003-1.030) 11/21/17 05:23 Urine Protein 30 mg/dL (NEGATIVE) 11/21/17 05:23 Urine Glucose (UA) Neg mg/dL (Normal) 11/21/17 05:23 Urine Ketones 20 mg/dL (NEGATIVE) 11/21/17 05:23 Urine Blood Negative (NEGATIVE) 11/21/17 05:23 Urine Nitrate Negative (NEGATIVE) 11/21/17 05:23 Urine Bilirubin Negative (NEGATIVE) 11/21/17 05:23 Urine Urobilinogen 0.2-1.0 mg/dL (0.2-1.0) 11/21/17 05:23 Ur Leukocyte Esterase Neg [place]/uL (Negative) 11/21/17 05:23 Urine RBC (Auto) 4 /hpf (0-3) H 11/21/17 05:23 Urine Microscopic WBC 2 /hpf (0-5) 11/21/17 05:23 Ur Squamous Epith Cells < 1 /hpf (0-5) 11/21/17 05:23 Stool Leukocytes, Qual Positive (NEGATIVE) H 11/22/17 09:36 - Hospital Course Hospital Course: 27 yo male with no siginificant PMH was admitted because of abdominal pain associated with bouts of nausea/vomiting and diarrhea. CT scan of abdomen showed wall thickening of small intestine and colon significant for enterocolitis. Patient was placed on NPO, IV hydrated and started on IV Cipro and Flagyl. His condition improved with resolution of diarrhea, abdominal pain and vomiting. Patient was discharged in stable condition. Discharge Exam - Head Exam Head Exam: ATRAUMATIC, NORMAL INSPECTION, NORMOCEPHALIC - Eye Exam Eye Exam: absent: Scleral icterus - ENT Exam ENT Exam: Mucous Membranes Moist - Respiratory Exam Respiratory Exam: absent: Rhonchi, Wheezes, Respiratory Distress - Cardiovascular Exam Cardiovascular Exam: REGULAR RHYTHM, +S1, +S2 - GI/Abdominal Exam GI & Abdominal Exam: Soft. absent: Tenderness - Rectal Exam Rectal Exam: Deferred - Extremities Exam Extremities exam: pedal pulses present - Back Exam Back exam: absent: tenderness - Neurological Exam Neurological exam: Alert, Oriented x3 - Psychiatric Exam Psychiatric exam: Normal Affect - Skin Skin Exam: Dry, Intact Discharge Plan - Discharge Medications Prescriptions: Ciprofloxacin HCl [Cipro] 500 mg PO BID 7 Days tab Metronidazole [Flagyl] 500 mg PO TID 7 Days tablet - Follow Up Plan Condition: FAIR Disposition: HOME/ ROUTINE Instructions: Acute Abdomen (Belly Pain), Adult (DC), Gastritis (DC) Additional Instructions: follow up with your primary MD 7-10 days. Referrals: Zhou Nelson MD [Medical Doctor] -
== END 2017-11-23 13:09 | disposition home or self-care (01) ==
LOC: H.ER 23:44 → H.ERHOLD 11-21 06:24 → H.MEDSURG1 11-21 09:26
PROVIDERS: ADMIT Internal Medicine; ATTEND Internal Medicine
DX: K52.9 Noninfective gastroenteritis and colitis, unspecified (principal); E86.0 Dehydration; I10 Essential (primary) hypertension; Z82.49 Family history of ischemic heart disease and other diseases of the circulatory system
CPT/HCPCS: 36415; 74177; 76705; 80048; 80053; 81003; 83605; 83690; 85025; 85027; 87040; 87045; 87086; 87177; 87209; 89055; 96360; 96365; 96374; 99285; G0378; J0744; J1885; J2270; J2405; J7040; J7120; Q9966; Q9967